=== PATIENT | female | born 1970 | race Caucasian/White ===

== ENCOUNTER 2020-06-12 10:06 | Outpatient (CLI) | payer OTHER, SELFPAY ==
--- NOTE | ~2020-06-12 | MM_ITS ---
EXAMINATION: MM screening [facility] BI w sharon HISTORY: Screening mammogram TECHNIQUE: Craniocaudal and mediolateral oblique 3-D tomosynthesis images were obtained and synthetic 2-D images were generated. CAD analysis was submitted and interpreted. COMPARISON: 06/07/2019 BREAST PARENCHYMAL COMPOSITION: There are scattered areas of fibroglandular density. FINDINGS: There is no evidence of suspicious mass, calcification, or architectural distortion to sugg est malignancy in either breast. There has been no suspicious interval change. IMPRESSION: 1. No mammographic evidence of malignancy. 2. Recommend routine screening mammography in one year. BI-RADS Category 1: Negative Reviewed, dictated and finalized at location A.
== END 2020-06-12 10:07 | disposition home or self-care (01) ==
LOC: ANHIMG 10:08
PROVIDERS: PCP Family Medicine; Visit Provider Obstetrics & Gynecology
DX: Z12.31 Encounter for screening mammogram for malignant neoplasm of breast (principal)
CPT/HCPCS: 77063; 77067

== ENCOUNTER 2020-11-06 11:21 | Outpatient (CLI) | payer OTHER, SELFPAY ==
--- NOTE | ~2020-11-06 | CT_ITS ---
EXAMINATION: CT abdomen pelvis wo con DATE: 11/06/2020 11:36 INDICATION: Right lower quadrant abdominal pain for one week TECHNIQUE: Computed tomography (CT) of the abdomen and pelvis was performed without intravenous contr ast. Automated exposure control and iterative reconstruction technique were employed. Exam dose: 666 .12 mGy-cm total exam DLP. COMPARISON: 03/20/2018 CT abdomen pelvis FINDINGS: The lung bases are clear. Normal heart size. No pericardial or pleural effusion. The liver, spleen, pancreas, adrenal glands are unremarkable. No bile duct or pancreatic duct dilata tion. No renal mass lesion or urinary tract calculus or hydroureteronephrosis is detected. Normal caliber of the abdominal aorta. No intraperitoneal or retroperitoneal or pelvic mass lesion o r lymphadenopathy or ascites is detected. Normal appendix. There are numerous diverticula of the colon; no evidence of diverticulitis. No bowel obstruction or intraperitoneal free air. Retroverted uterus. The urinary bladder is unremarkable. No suspicious osteolytic or osteoblastic lesions. IMPRESSION: Diverticulosis of the colon; no evidence of diverticulitis Reviewed, dictated and finalized at Location A. Reviewed, dictated and finalized at location B.
== END 2020-11-06 11:22 | disposition home or self-care (01) ==
PROVIDERS: PCP Physician Assistant; Visit Provider Physician Assistant
DX: R10.31 Right lower quadrant pain (principal); K57.92 Diverticulitis of intestine, part unspecified, without perforation or abscess without bleeding
CPT/HCPCS: 74176

== ENCOUNTER 2020-11-06 13:20 | Emergency (ER) | payer OTHER, SELFPAY ==
[2020-11-06 13:28] VITALS: BP 127/81; PULSE 58; RESP 16; TEMP 37.1; O2SAT 100
--- NOTE | 2020-11-06 14:00 | ED.ABDPAIN ---
HPI - Abdominal Pain General Chief Complaint: Abdominal Pain Stated Complaint: abdominal/flank pain/vaginal burning/jiménez Time Seen by Provider: 11/06/20 13:55 Source: patient and RN notes reviewed Mode of arrival: ambulatory Limitations: no limitations History of Present Illness HPI narrative: 50-year-old female who presents to [facility] with complaints of not feeling well since having her COVID vaccination on the 26 of October. Patient states that she had fevers up to 101.5 on the and has had abdominal pain in the right lower abdomen radiating into her right flank and now having some burning in her perineal area. Patient states that she had a COVID test this past Friday which was negative and she has been achy and also has bee having headaches. Patient states that her PCP office ordered her a CT scan of abdomen and they called and stated it was negative but would not see her in the office. MD elicited complaint: abdominal pain Pertinent past history: constipation Onset (ago): day(s) Radiation: RLQ and R flank Exacerbating factors: nothing Relieving factors: nothing Treatments prior to arrival: NSAIDs Related Data Patient : No Home Medications Medication Instructions Recorded Confirmed cholecalciferol (vitamin D3) 50 50 mcg PO DAILY 02/14/20 11/06/20 mcg (2,000 unit) capsule magnesium oxide 250 mg PO DAILY 02/14/20 11/06/20 calcium carb 300 mg-D3 800 1 tablet PO DAILY 09/25/20 11/06/20 unit-mag ox 25 mg-copra sampler 0.5 mg-sunny-Zn tablet Allergies Allergy/AdvReac Type Severity Reaction Status Date / Time cephalexin Allergy Unknown Diarrhea Verified 11/06/20 13:36 Penicillins Allergy Unknown Unknown Verified 11/06/20 13:36 Sulfa (Sulfonamide Allergy Unknown Unknown Verified 11/06/20 13:36 Antibiotics) Review of Systems Review of Systems: Narrative: CONSTITUTIONAL: Denies present fever, some chills, or sweats did have fevers and 16 EYES: Denies visual changes, redness, or discharge. ENT: Denies rhinorrhea, congestion, sore throat, or otalgia. CARDIOVASCULAR: Denies chest pain, palpitations, or edema. RESPIRATORY: Denies cough or dyspnea. GASTROINTESTINAL: Positive for right lower abdomen radiating to back(flank area),no nausea, vomiting, or diarrhea. GENITOURINARY: Denies dysuria or hematuria positive for burning in perineal area. SKIN: Denies rash or itching. MUSCULOSKELETAL: Denies back pain, joint pain, positive myalgia. NEUROLOGIC: Positive for intermittent headache,no numbness, or weakness. PSYCHIATRIC: history of anxiety or depression. All systems reviewed & are unremarkable except as noted in HPI and below PMFSH Past Medical History Medical History Hyperlipidemia Hypertension Type 2 diabetes mellitus Vitamin D deficiency Surgical History Surgical History History of removal of cyst Family History Family History Father Hypertension Dementia Diabetes mellitus Social History Social History (Updated 11/06/20 @ 14:22 by Alicia Healy NP) Smoking status: Never smoker Second hand tobacco smoke exposure: No Alcohol intake: current Substance use: never Living arrangements: with family Gender identity (if verbalized by the patient): Female Comments At time of signature, agree with nursing past medical, surgical, social and family history. There is no relevant family history pertinent to the presenting complaint Exam Narrative: Exam Narrative: GENERAL: Well-appearing, well-nourished, and in no acute distress. HEAD: Normocephalic, atraumatic. EYES: PERRLA and EOMI. ENT: Nares clear, no rhinorrhea or epistaxis. Mucous membranes moist. NECK: Supple.no lymphadenopathy CHEST: Clear to auscultation. No respiratory distress.SAO2 100% on room air HEART: Regular rate and rhythm. No murmur heard. Nor
== END 2020-11-06 14:45 | disposition home or self-care (01) ==
PROVIDERS: Emergency Provider Registered Nurse; PCP Physician Assistant
DX: B34.9 Viral infection, unspecified (principal); M79.10 Myalgia, unspecified site; E78.5 Hyperlipidemia, unspecified; I10 Essential (primary) hypertension; E11.9 Type 2 diabetes mellitus without complications; E55.9 Vitamin D deficiency, unspecified
CPT/HCPCS: 81003; 87081; 87804; 87880; 99213; G0463

== ENCOUNTER 2021-03-30 00:10 | Day surgery (SDC) | payer OTHER, SELFPAY ==
[2021-03-15 15:42] VITALS: BMI 31.9
[2021-03-30 07:47] VITALS: BP 117/93; PULSE 56; RESP 18; TEMP 36.1; O2SAT 100; BMI 32.3
[2021-03-30] MEDS: LACTATED RINGERS 1,000 ML 150 ML IV CONT (07:52)
--- NOTE | 2021-03-30 07:58 | P.PNAN_ITS ---
Anes - Initial Pre Proc Eval Procedure: Operation Date: 03/30/21 08:45 Proposed Procedures p Screening Colonoscopy - Alex Streeter MD Date/Time: 03/30/21 07:58 Surgeon: Alex Streeter MD Pre Op Diagnosis: neoplasm screening Patient Data Age: 50 Gender: F Height: 1.7 m Weight: 93.5 kg Last Vital Signs Temp 36.1 C L 03/30/21 07:47 Pulse 56 L 03/30/21 07:47 Resp 18 03/30/21 07:47 BP 117/93 H 03/30/21 07:47 Pulse Ox 100 03/30/21 07:47 Allergies Allergy/AdvReac Type Severity Reaction Status Date / Time Penicillins Allergy Intermediate Unknown Verified 03/30/21 07:44 cephalexin AdvReac Intermediate Gastrointestinal Verified 03/30/21 07:44 Upset Sulfa (Sulfonamide AdvReac Intermediate Gastrointestinal Verified 03/30/21 07:44 Antibiotics) Upset Home Medications Medication Instructions Recorded Confirmed Type blood sugar diagnostic #10 each 07/12/19 03/30/21 Rx blood-glucose meter #1 each 07/12/19 03/30/21 Rx lancets #50 each 07/12/19 03/30/21 Rx cholecalciferol (vitamin D3) 50 50 mcg PO DAILY 02/14/20 03/30/21 History mcg (2,000 unit) capsule magnesium oxide 250 mg PO DAILY 02/14/20 03/30/21 History irbesartan 150 mg tablet 150 mg PO DAILY #90 tablet 07/20/20 03/30/21 Rx calcium carb 300 mg-D3 800 2 tablet PO DAILY 09/25/20 03/30/21 History unit-mag ox 25 mg-commercial helicopter pilot 0.5 mg-sunny-Zn tablet hydrochlorothiazide 25 mg tablet 25 mg PO DAILY #90 tablet 11/29/20 03/30/21 Rx cholecalciferol (vitamin D3) 25 mcg PO DAILY 03/15/21 03/30/21 History [Vitamin D3] collagen 1 dose PO DAILY 03/15/21 03/30/21 History sertraline 25 mg PO DAILY 03/15/21 03/30/21 History Patient hx anesthesia problems: none Family hx anesthesia problems: none PMFSH Past Medical History Medical History Hypertension Vitamin D deficiency Surgical History Surgical History History of removal of cyst Family History Family History Father Hypertension Dementia Diabetes mellitus Social History Social History Smoking status: Never smoker Second hand tobacco smoke exposure: No Alcohol intake: current Drinks per week: 1 Substance use: never Substance use type: does not use Gender identity (if verbalized by the patient): Female Spiritual care concerns: No Anes - Eval Final PreProcedure Day of Procedure 03/30/21 07:58 Patient weight: overweight Heart: regular rate and rhythm Lungs: clear to auscultation Airway: Mallampati scale class II Neurological: alert and oriented Last oral intake: >/= 8 hours ASA classification: II Emergent: no Anesthetic plan: proceed Anesthesia type and monitoring: general GIVS and standard monitoring Informed Consent: The patient's anesthetic plan and its attendant risks and benefits were discussed with the patient/family/POA. Questions were solicited and answers provided to the satisfaction of the patient/family/POA.
--- NOTE | 2021-03-30 08:17 | PM.HPGS ---
History of Present Illness History of Present Illness Consent: Risks, benefits, and alternatives have been discussed and questions answered. Patient agrees to proceed with procedure. Chief complaint: neoplasm screening Narrative: Lyla Patricia is a 50 year old female here for first screening colonoscopy Review of Systems Constitutional: Constitutional: Denies headache(s) and Denies weakness Eyes: Eyes: Denies blurry vision ENT: Reports Normal hearing present, Denies headache(s) and Denies neck pain Cardiovascular: Cardiovascular: Denies chest pain and Denies dyspnea Respiratory: Respiratory: Denies dyspnea Gastrointestinal: Gastrointestinal: Reports no additional gastrointestinal complaints Genitourinary: Genitourinary: Denies dysuria Musculoskeletal: Musculoskeletal: Denies neck pain Integumentary/Breasts: Skin/Breast: Denies dry skin Neurologic: Reports Normal hearing present, Denies headache(s) and Denies weakness Psychiatric: Psychiatric: Denies anxiety Endocrine: Endocrine: Denies change in body appearance Hematologic/Lymphatic: Hematologic/Lymphatic: Denies easy bleeding Allergic/Immunologic: Allergic/Immunologic: Denies urticaria PMFSH Past Medical History Medical History Hypertension Vitamin D deficiency Surgical History Surgical History History of removal of cyst Family History Family History Father Hypertension Dementia Diabetes mellitus Social History Social History Smoking status: Never smoker Second hand tobacco smoke exposure: No Alcohol intake: current Drinks per week: 1 Substance use: never Substance use type: does not use Gender identity (if verbalized by the patient): Female Spiritual care concerns: No Meds Home Medications and Allergies Home Medications Medication Instructions Recorded Confirmed Type blood sugar diagnostic #10 each 07/12/19 03/30/21 Rx blood-glucose meter #1 each 07/12/19 03/30/21 Rx lancets #50 each 07/12/19 03/30/21 Rx cholecalciferol (vitamin D3) 50 50 mcg PO DAILY 02/14/20 03/30/21 History mcg (2,000 unit) capsule magnesium oxide 250 mg PO DAILY 02/14/20 03/30/21 History irbesartan 150 mg tablet 150 mg PO DAILY #90 tablet 07/20/20 03/30/21 Rx calcium carb 300 mg-D3 800 2 tablet PO DAILY 09/25/20 03/30/21 History unit-mag ox 25 mg-telescope maintenance 0.5 mg-sunny-Zn tablet hydrochlorothiazide 25 mg tablet 25 mg PO DAILY #90 tablet 11/29/20 03/30/21 Rx cholecalciferol (vitamin D3) 25 mcg PO DAILY 03/15/21 03/30/21 History [Vitamin D3] collagen 1 dose PO DAILY 03/15/21 03/30/21 History sertraline 25 mg PO DAILY 03/15/21 03/30/21 History Allergies Allergy/AdvReac Type Severity Reaction Status Date / Time Penicillins Allergy Intermediate Unknown Verified 03/30/21 07:44 cephalexin AdvReac Intermediate Gastrointestinal Verified 03/30/21 07:44 Upset Sulfa (Sulfonamide AdvReac Intermediate Gastrointestinal Verified 03/30/21 07:44 Antibiotics) Upset Vital Signs Vital Signs - 24 hr 03/30/21 07:47 Temperature 97 F L Pulse Rate 56 L Respiratory Rate 18 Blood Pressure 117/93 H Pulse Oximetry 100 Exam Const: General: comfortable and no acute distress HENMT: General nose exam: Normal nares present Eyes: General: appearance normal, both eyes and all related structures Neck: Neck: no JVD Resp: Auscultation: clear to auscultation bilaterally Cardio: Rate: regular rate Rhythm: regular rhythm GI: Inspection: non-distended GI Palp: Yes Soft to palpation Skin: General skin exam: normal color Neuro: General: gait normal Speech: normal speech Extrem: General: normal to inspection Psych: Mental Status: mental status grossly normal Assessment and Plan Assessment and pl
[2021-03-30 08:47] VITALS: BP 101/68; PULSE 50; RESP 12; O2SAT 98
[2021-03-30 08:57] VITALS: BP 108/64; PULSE 58; RESP 12; O2SAT 98
[2021-03-30 09:07] VITALS: BP 109/75; PULSE 51; RESP 14; O2SAT 98
== END 2021-03-30 09:21 | disposition home or self-care (01) ==
PROVIDERS: PCP Physician Assistant; Visit Provider Internal Medicine Gastroenterology
PROC: 0DJD8ZZ Inspection of Lower Intestinal Tract, Via Natural or Artificial Opening Endoscopic (ICD-10-PCS; CPT 45378; principal; 2021-03-30 08:45)
DX: Z12.11 Encounter for screening for malignant neoplasm of colon (principal); I10 Essential (primary) hypertension; E55.9 Vitamin D deficiency, unspecified; K57.30 Diverticulosis of large intestine without perforation or abscess without bleeding; K64.8 Other hemorrhoids; K64.4 Residual hemorrhoidal skin tags
CPT/HCPCS: 45378; J7120

== ENCOUNTER 2021-05-19 09:02 | Emergency (ER) | payer OTHER, SELFPAY ==
[2021-05-19 09:11] VITALS: BP 130/91; PULSE 66; RESP 18; TEMP 36.2; O2SAT 100
--- NOTE | 2021-05-19 09:32 | ED.URI ---
HPI - URI/Sore Throat General Chief Complaint: Upper Respiratory Infection Stated Complaint: Headache,Sore Throat Time Seen by Provider: 05/19/21 09:20 Source: patient Mode of arrival: ambulatory Limitations: no limitations History of Present Illness HPI Narrative: Lyla Champion is a 50 yo female with PMH of HTN, prediabetes, who comes with a weeks worth of symptoms including sinus drainage, headache, sore throat generally not feeling well throat just generally aches. No fever no nausea vomiting or diarrhea. The PCR Covid test on Friday that was negative Patient is vaccinated for Covid Related Data Home Medications Medication Instructions Recorded Confirmed cholecalciferol (vitamin D3) 50 50 mcg PO DAILY 02/14/20 05/19/21 mcg (2,000 unit) capsule magnesium oxide 250 mg PO DAILY 02/14/20 05/19/21 calcium carb 300 mg-D3 800 2 tablet PO DAILY 09/25/20 05/19/21 unit-mag ox 25 mg-copper plate printer 0.5 mg-sunny-Zn tablet Allergies Allergy/AdvReac Type Severity Reaction Status Date / Time Penicillins Allergy Intermediate Rash Verified 05/19/21 09:19 Sulfa (Sulfonamide Allergy Intermediate Rash Verified 05/19/21 09:19 Antibiotics) cephalexin AdvReac Intermediate Gastrointestinal Verified 05/19/21 09:19 Upset Review of Systems Review of Systems: CONSTITUTIONAL: Denies fever, chills, sweats. EYES: Denies visual changes, redness, discharge. ENT: Has rhinorrhea, congestion, has sore throat, otalgia. CARDIOVASCULAR: Denies chest pain, palpitations, edema. RESPIRATORY: Denies dyspnea, wheezing, cough GASTROINTESTINAL: Denies abdominal pain, nausea, vomiting, diarrhea. GENITOURINARY: Denies dysuria, hematuria, abnormal discharge SKIN: Denies rash or itching. NEUROLOGIC: Denies numbness, or focal weakness. PSYCHIATRIC: Denies anxiety or depression. [facility] Past Medical History Medical History Hypertension Vitamin D deficiency Surgical History Surgical History History of removal of cyst Family History Family History Father Hypertension Dementia Diabetes mellitus Social History Social History Smoking status: Never smoker Second hand tobacco smoke exposure: No Alcohol intake: current Drinks per week: 1 Substance use: never Substance use type: does not use Gender identity (if verbalized by the patient): Female Spiritual care concerns: No Comments At time of signature, I agree with nursing past medical, surgical, social and family history. There is no relevant family history pertinent to the presenting complaint. Exam Narrative: GENERAL: This is a well-nourished, well-developed patient, in mild distress. HEAD: normocephalic, atraumatic. EYES: P Sclera clear/white. Vision is grossly intact. EARS: External ears normal, auditory canals clear and without drainage, TMs normal without perforation. Hearing grossly intact. NOSE: External nose normal without nasal discharge, nares without redness, no rhinorrhea. THROAT: Mucous membranes moist, posterior pharynx erythema with drainage NECK: Neck supple, tender on left CARDIOVASCULAR: Regular rate and rhythm without murmurs, gallops, or rubs. RESPIRATORY: Clear to auscultation. Breath sounds equal bilaterally. No wheezes, rales, or rhonchi. GASTROINTESTINAL: Abdomen soft, SKIN: warm, intact with no suspicious lesions or rash, good texture and turgor. NEURO: awake, alert, and oriented to person, place and time. There were no obvious focal neurologic abnormalities. Steady gait EXTREMITIES: Normal range of motion. BACK: Nontender without deformity Course Course Emergency Course: Patient comes with upper respiratory symptoms such as drainage sore throat pain headache and fatigue Strep test-negative Started on Zyrtec, Zithromax,
== END 2021-05-19 09:45 | disposition home or self-care (01) ==
PROVIDERS: Emergency Provider Nurse Practitioner; PCP Family Medicine
DX: J02.9 Acute pharyngitis, unspecified (principal); R51.9 Headache, unspecified; I10 Essential (primary) hypertension; E55.9 Vitamin D deficiency, unspecified
CPT/HCPCS: 87070; 87880; 99213; G0463

== ENCOUNTER 2021-07-18 08:11 | Outpatient (CLI) | payer OTHER, SELFPAY ==
--- NOTE | ~2021-07-18 | MM_ITS ---
EXAMINATION: MM screening [facility] BI w sharon HISTORY: Screening mammogram TECHNIQUE: Craniocaudal and mediolateral oblique 3-D tomosynthesis images were obtained and synthetic 2-D images were generated. CAD analysis was submitted and interpreted. COMPARISON: 06/12/2020, 06/07/2019 bilateral screening mammogram examinations BREAST PARENCHYMAL COMPOSITION: There are scattered areas of fibroglandular density. FINDINGS: Biopsy marker on the left; history of prior benign left breast biopsy There is no evidence of suspicious mass, calcification, or architectural distortion to suggest malignancy in either breast . There has been no suspicious interval change. IMPRESSION: 1. No mammographic evidence of malignancy. 2. Recommend routine screening mammography in one year. BI-RADS Category 2: Benign finding(s). Reviewed, dictated and finalized at location A. HALMIC PATHOLOGIST
== END 2021-07-18 08:12 | disposition home or self-care (01) ==
LOC: ANHIMG 08:14
PROVIDERS: PCP Family Medicine; Visit Provider Obstetrics & Gynecology
DX: Z12.31 Encounter for screening mammogram for malignant neoplasm of breast (principal)
CPT/HCPCS: 77063; 77067

== ENCOUNTER 2022-07-20 13:18 | Outpatient (CLI) | payer OTHER, SELFPAY ==
--- NOTE | ~2022-07-20 | MM_ITS ---
EXAMINATION: MM screening [facility] BI w sharon HISTORY: Screening mammogram TECHNIQUE: Craniocaudal and mediolateral oblique 3-D tomosynthesis images were obtained and synthetic 2-D images were generated. CAD analysis was submitted and interpreted. COMPARISON: 07/18/2021, 06/12/2020, 06/07/2019 BREAST PARENCHYMAL COMPOSITION: There are scattered areas of fibroglandular density. FINDINGS: No suspicious mass, calcification, or architectural distortion are identified in either grayson ast to suggest malignancy. There has been no suspicious interval change. IMPRESSION: 1. No mammographic evidence of malignancy. 2. Recommend routine screening mammography in one year. BI-RADS Category 1: Negative Reviewed, dictated and finalized at location A. HOOKER
== END 2022-07-20 13:19 | disposition home or self-care (01) ==
PROVIDERS: PCP Family Medicine; Visit Provider Obstetrics & Gynecology
DX: Z12.31 Encounter for screening mammogram for malignant neoplasm of breast (principal)
CPT/HCPCS: 77063; 77067

== ENCOUNTER → 2022-08-16 12:48 | Outpatient (CLI) | payer OTHER, SELFPAY ==
--- NOTE | ~2022-08-16 | CT_ITS ---
EXAMINATION: CT abdomen pelvis wo con DATE: 08/16/2022 13:27 INDICATION: Bilateral flank pain, microscopic hematuria TECHNIQUE: Computed tomography (CT) of the abdomen and pelvis was performed without intravenous contr ast. The dose-length product (DLP) was 692.42 mGy-cm. Automated exposure control and iterative recons truction technique were employed. COMPARISON: 11/06/2020 FINDINGS: Minimal dependent atelectasis is present in the lung bases. The heart size is normal. The l iver, spleen, pancreas, gallbladder, and adrenal glands are normal. The kidneys are unremarkable. No stones are identified in the kidneys, ureters, or bladder. No hydronephrosis or hydroureter. Colonic diverticulosis is present without evidence of diverticulitis. No pathologically enlarged abdominal or pelvic lymph nodes are identified. There is no free intraperitoneal gas or evidence of bowel obstruc tion. IMPRESSION: 1. No CT correlate for the patient's symptoms. Reviewed, dictated and finalized at location B. L BLOCK PRESS OPERATOR
== END ==
PROVIDERS: PCP Physician Assistant Medical; Visit Provider Physician Assistant Medical
DX: R31.9 Hematuria, unspecified (principal)
CPT/HCPCS: 74176

== ENCOUNTER 2023-10-09 09:16 | Emergency (ER) | payer OTHER, SELFPAY ==
[2023-10-09 09:23] VITALS: BP 121/78; PULSE 62; RESP 16; TEMP 36.9; O2SAT 100
--- NOTE | 2023-10-09 09:34 | ED.URI ---
HPI - URI/Sore Throat General Chief Complaint: Upper Respiratory Infection Stated Complaint: Headache/Sore Throat History of Present Illness HPI Narrative: 53 y/o female presented for c/o nasal congestion, sinus pressure, sore throat, and fever/chills. Symptoms worsening x4 days. Also reports spot to back of throat. Tested negative for covid at home yesterday. Denies sob, wheezing, n/v/d. Related Data Home Medications Medication Instructions Recorded Confirmed cholecalciferol (vitamin D3) 50 50 mcg PO DAILY 02/14/20 10/09/23 mcg (2,000 unit) capsule magnesium oxide 250 mg PO DAILY 02/14/20 10/09/23 calcium carb 300 mg-D3 20 mcg-mag 2 tablet PO DAILY 09/25/20 10/09/23 ox 25 mg-photocopy operator 0.5 [id number] tablet (Caltrate-D3 Plus Minerals) docusate sodium 50 mg capsule 50 mg PO DAILY 12/28/21 10/09/23 (Stool Softener) vitamin B complex 1 tablet PO DAILY 12/28/21 10/09/23 psyllium husk 0.4 gram capsule 0.4 g PO DAILY 08/02/22 10/09/23 (Fiber (psyllium husk)) Allergies Allergy/AdvReac Type Severity Reaction Status Date / Time Penicillins Allergy Intermediate Rash Verified 10/09/23 09:25 Sulfa (Sulfonamide Allergy Intermediate Rash Verified 10/09/23 09:25 Antibiotics) cephalexin AdvReac Intermediate Gastrointestinal Verified 10/09/23 09:25 Upset Review of Systems Review of Systems: CONSTITUTIONAL: Reports body aches, fever, chills, or sweats. EYES: Denies visual changes, redness, or discharge. ENT: reports rhinorrhea, congestion, sore throat denies otalgia. CARDIOVASCULAR: Denies chest pain, palpitations, or edema. RESPIRATORY: Denies dyspnea. GASTROINTESTINAL: Denies abdominal pain, nausea, vomiting, or diarrhea. SKIN: Denies rash, itching, or wounds. MUSCULOSKELETAL: Denies back pain, joint pain, or myalgia. NEUROLOGIC: Denies headache PMFSH Past Medical History Medical History Hypertension Pre-diabetes Vitamin D deficiency Surgical History Surgical History History of removal of cyst Family History Family History Father Hypertension Dementia Diabetes mellitus Son Type 1 diabetes mellitus Daughter POTS (postural orthostatic tachycardia syndrome) Dwayne-Danlos syndrome Mast cell activation syndrome Social History Social History Smoking status: Never smoker Second hand tobacco smoke exposure: No Alcohol intake: current Drinks per week: 1 Substance use: never Substance use type: does not use Lack of Transportation: No Lack of Food: Never True Current Housing: I Have Housing Concerned About Future Housing: No Difficulty Paying Gas/Electric Bills: No Difficulty Paying for Meds: No Currently Unemployed: No Education: Bachelor's Degree Difficulty w/ Childcare or Family Care: No Living arrangements: with family Gender identity (if verbalized by the patient): Female Spiritual care concerns: No Exam Narrative: GENERAL: mildly Ill-appearing, no acute distress. EYES: conjunctivae clear ENT: Mucous membranes moist. Nasal congestion. TMs pearly rodriguez with normal light reflex bilaterally; no tragal tenderness. Oropharynx mildly erythematous. circular white lesion approx 3mm noted to right upper soft palate c/w ulcer/stomatitis. Tonsils not enlarged and without exudate. No drooling, no hoarseness, no trismus, uvula midline. No tripod positioning, hot potato voice, or soft palate swelling. NECK: Supple. No lymphadenopathy CHEST: Clear to auscultation, breath sounds equal. No respiratory distress, speaks in full sentences. HEART: Regular rate and rhythm. No murmur heard. SKIN: Warm, dry, no rash. NEURO: Alert and oriented x3. HENMT: Mouth/tongue images: 1. area of lesion Course Course Emergency Course: Bridgett
== END 2023-10-09 10:08 | disposition home or self-care (01) ==
PROVIDERS: Emergency Provider Nurse Practitioner Family; PCP Family Medicine
DX: J06.9 Acute upper respiratory infection, unspecified (principal); K12.1 Other forms of stomatitis; I10 Essential (primary) hypertension; Z79.899 Other long term (current) drug therapy
CPT/HCPCS: 87081; 87804; 87880; 99213; G0463

== ENCOUNTER 2023-10-23 07:19 | Outpatient (CLI) | payer OTHER, SELFPAY ==
--- NOTE | ~2023-10-23 | MM_ITS ---
EXAMINATION: MM screening [facility] BI w sharon HISTORY: Screening mammogram TECHNIQUE: Craniocaudal and mediolateral oblique 3-D tomosynthesis images were obtained and synthetic 2-D images were generated. CAD analysis was submitted and interpreted. COMPARISON: 07/20/2022, 07/18/2021, 06/12/2020 BREAST PARENCHYMAL COMPOSITION:Not Dense. There are scattered areas of fibroglandular density. FINDINGS: No suspicious mass, calcification, or architectural distortion are identified in either grayson ast to suggest malignancy. There has been no suspicious interval change. IMPRESSION: No mammographic evidence of malignancy. Recommend routine screening mammography in one year. BI-RADS Category 1: Negative Reviewed, dictated and finalized at location . INUOUS PROCESS ROTARY DRUM TANNER
== END 2023-10-23 07:20 | disposition home or self-care (01) ==
PROVIDERS: PCP Family Medicine; Visit Provider Obstetrics & Gynecology
DX: Z12.31 Encounter for screening mammogram for malignant neoplasm of breast (principal)
CPT/HCPCS: 77063; 77067

== ENCOUNTER 2024-11-04 08:08 | Outpatient (CLI) | payer OTHER, SELFPAY ==
--- NOTE | ~2024-11-04 | MM_ITS ---
EXAMINATION: MM screening jensen BI w sharon HISTORY: Screening TECHNIQUE: Craniocaudal and mediolateral oblique 3-D tomosynthesis images were obtained and synthetic 2-D images were generated. CAD analysis was submitted and interpreted. COMPARISON: Comparison to multiple prior studies sequentially, with oldest reviewed study dated 05/19. BREAST PARENCHYMAL COMPOSITION: Not dense: There are scattered areas of fibroglandular density. FINDINGS: There is no evidence of suspicious mass, calcification, or architectural distortion to sugg est malignancy in either breast. There has been no suspicious interval change. IMPRESSION: 1. No mammographic evidence of malignancy. 2. Recommend routine screening mammography in one year. BI-RADS Category 1: Negative Reviewed, dictated and finalized at location []
--- OUTSIDE RECORDS SUMMARY | 2024-11-04 08:16 | XMS_ITS | Continuity of Care Document ---
Author Organization [facility] Address [address] [place] [address] Phone Care Team Providers Care Rn Otolaryngology Name Role Phone Amol Ayala MD Unavailable Unavailable Advance Directives Directive Yes / No Effective Date File Name No Information Encounters Encounter Description Practice Location Reason(s) For Visit Diagnoses Date Provider Providers Copied on Encounter [facility] 2000, [address], [place], [place], [id number], [place] tel:[phone] [facility] No Information Jamie Carmichael. [address] , [place], [place], [id number], [place]. tel:[phone] Referring Provider: Gurmeet Burgess, [address] [facility] [address], [place], [address]. tel:[phone] Family History Family Member Type Diagnosis Age At Onset No Information Payers Payer name Insurance type Covered constitution party ID Authoriza tion(s) [employer] OUT OF STATE [id number] Social History Type Description Quantity Date Captured Comments Sex Female Smoking Status No Information Chief Complaint And Reason For Visit No Information Reason For Referral Reason For Referral No Information History Of Present Illness Encounter Date Complaint History Of Prese nt Illness No Information Functional Status Date Functional Assessmen t No Information Instructions Date Instruction Additional Infor mation No Information Assessments Type Assessment Date No Information Patient Care Teams Name Effective Dates (start - stop) Status Members No Information
--- OUTSIDE RECORDS SUMMARY | 2024-11-04 08:16 | XMS_ITS | Clinical Summary ---
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 05/18 Encounter for orthopedic follow-up care 05/30/20 15 Ankle pain 11/22/2014 Pain of foot 11/11/2014 Surgical History Surgery Date Site/Laterality Comments BREAST BIOPSY 12/15/2012 Left Family History Medical History Relation Name Comments Arthritis Father Family history of arthritis - (Added by TW Conv) Hypertension Father Family history of hypertension - (Added by TW Conv) Relation Name Status Comments Father Social History Tobacco Use Types Packs/Day Years Used Date Smoking Tobacco: Never Assessed Comments Unknown Sex and Gender Information Value Date Recorded Sex Assigned at Not on file 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
--- OUTSIDE RECORDS SUMMARY | 2024-11-04 08:16 | XMS_ITS | Referral Summary ---
Author Organization [facility] [address] Address [address] [place] [address] Care Team Providers Care Branch Lending Officer Name Role Phone Fito Maza MD Primary Care Provider [phone] Allergies Active Allergy Reactions Criticality Noted Date Comments Penicillins Sulfa (Sulfonamide Antibiotics) Active Problems Problem Noted Date Diagnosed Date Skin neoplasm 06/03/2016 Keratosis pilaris 06/03/2016 Melanocytic nevus of skin of abdominal wall 05/18 Encounter for orthopedic follow-up care 05/30/20 15 Ankle pain 11/22/2014 Pain of foot 11/11/2014 Social History Tobacco Use Types Packs/Day Years Used Date Smoking Tobacco: Never Assessed Comments Unknown Sex and Gender Information Value Date Recorded Sex Assigned at Not on file 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
== END 2024-11-04 08:09 | disposition home or self-care (01) ==
PROVIDERS: Visit Provider Obstetrics & Gynecology
DX: Z12.31 Encounter for screening mammogram for malignant neoplasm of breast (principal)
CPT/HCPCS: 77063; 77067

== ENCOUNTER 2024-11-30 08:15 | Outpatient (RCR) | payer BC, OTHER, SELFPAY ==
[2024-09-07 08:25] VITALS: BMI 30.3
[2024-11-30 08:20] VITALS: BMI 29.5
[2024-11-30 08:22] VITALS: BMI 29.5
== END 2024-12-08 08:32 | disposition home or self-care (01) ==
LOC: ANHDMC 08:15
PROVIDERS: PCP Family Medicine; Visit Provider Family Medicine
DX: E11.9 Type 2 diabetes mellitus without complications (principal); Z71.3 Dietary counseling and surveillance
CPT/HCPCS: 97802; 97803

== ENCOUNTER 2025-03-16 08:15 | Outpatient (RCR) | payer OTHER, SELFPAY ==
[2025-01-25 08:20] VITALS: BMI 27.8
[2025-03-16 08:15] VITALS: BMI 26.7
[2025-03-16 08:20] VITALS: BMI 26.7
--- NOTE | 2025-03-16 10:22 | PCDIET ---
Initial MNT consult in Aug 2024. Pt followed up appropriately. See notes in [employer] [id number] and [id number].
== END 2025-03-16 10:28 | disposition home or self-care (01) ==
LOC: ANHDMC 08:15
PROVIDERS: PCP Family Medicine; Visit Provider Family Medicine
DX: E11.9 Type 2 diabetes mellitus without complications (principal); Z71.3 Dietary counseling and surveillance
CPT/HCPCS: 97803